=== PATIENT | male | born 1985 | race African-American/Black ===

== ENCOUNTER 2017-07-01 02:55 | Emergency (ER) | payer SELFPAY ==
--- NOTE | 2017-07-01 03:01 | PDOC ---
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 The patient has had a several month history of intermittent pruritic, generalized rash for which he was treating himself with topical and oral medications. Last week, he communicated with a friend who lives in [place]. This friend had visited him several months ago and since has been treated for scabies. Patient thought that he might have scabies and medicated himself with permethrin 3 days ago. He left the medication in contact with his skin for approximately 6 hours (slightly less than recommended). Over the next 2 days, he noted a rash in the central suprapubic region extending to the anterior proximal penis. Vesicles eventually formed in the skin and clear yellowish material drained. Patient noted some mild edema and pain in the area around the rash with development of mildly tender inguinal lymph node enlargement. There has been no scrotal or proximal thigh rash. There has been no penile discharge. There has been no other new rash noted on his body. There is no history of fever or chills. Patient has been placing bacitracin ointment daily on the groin rash. Patient has no previous history of contact dermatitis as far as he knows; he has no history of cellulitis or abscess. No history of immunocompromise or known MRSA colonization/infection. 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 He is quite concerned that the cellulitis that has formed is MRSA-related On no medications Patient denies smoking/recreational drug use/daily alcohol use No known ALLERGIES Past History - Past Medical History Allergies/Adverse Reactions: Allergies Allergy/AdvReac Type Severity Reaction Status Date / Time No Known Allergies Allergy Verified 07/01/17 02:57 Home Medications: Ambulatory Orders Amoxicillin - [Amoxicillin 875mg Tablet -] 875 mg PO BID #14 tab 07/01/17 Sulfamethoxazole/Trimethoprim [Bactrim Ds -] 2 tab PO BID #28 tablet 07/01/17 Review of Systems - Review of Systems Able to Perform ROS?: Yes Comments:: 12 point review of systems is negative except for what is noted in the history of present illness *Physical Exam - Physical Exam Comments: GENERAL: Anxious adult male, alert and oriented 3, in no acute distress HEAD: Normal with no signs of trauma. EYES: PERRLA, EOMI, sclera anicteric, conjunctiva clear. LUNGS: Breath sounds equal, clear to auscultation bilaterally. No wheezes, and no crackles. HEART:Regular rate and rhythm, normal S1 and S2 without murmur, rub or gallop. ABDOMEN:.normal bowel sounds No guarding,tenderness or rebound.No masses No distention. -8 cm x 5 cm slightly scaly, mildly raised rash with scattered closed vesicles central suprapubic region Rash extends downward to proximal third anterior surface of penis; no significant edema of genitals; No scrotal or proximal thigh involvement with rash Mildly tender 1 -1.5 cm bilateral inguinal lymphadenopathy EXTREMITIES: Normal range of motion, no edema. No clubbing or cyanosis. No erythema, or tenderness. NEUROLOGICAL: Cranial nerves II through XII grossly intact. Normal speech. No focal neurological deficits. MUSCULOSKELETAL: Back non-tender to palpation, no CVA tenderness SKIN: Warm, Dry, normal turgor, groin rash as noted above; also faint macular rash involving back and bilateral arms Progress Note - Progress Note Progress Note: This otherwise healthy 31-year-old man with no history of immunocompromise and no known history of MRSA(but known risk factor because of occupational exposure ) presents with contact irritant dermatitis of the groin secondary to permethrin. The area around the dermatitis is mildly tender and edematous with presence of enlarged bilateral inguinal lymph nodes. Of note, there is been no fever/chills/other signs of systemic toxicity. Clinical presentation most consistent with irritant contact dermatitis and secondary mild cellulitis. Since patient is at risk for MRSA secondary to his occupation as a physician in an urban hospital, antibiotic coverage will be with Bactrim DS twice a day(the patient prefers not to use Clindamycin secondary to risk for C.diff) and amoxicillin 875 mg twice a day for one week. Patient has no personal physician currently. Although he practices in the [place] , he would prefer to have his followup medical coverage in this area. He will be given referrral information for Dr. Prescott for internal medicine, Dr. Howard for dermatology and Dr. Thornton for urology. Follow-up with these physicians should be within the next week He should return to the emergency room if he develops fever/increased pain or edema of the current rash/more generalized skin breakdown or rash. *DC/Admit/Observation/Transfer Diagnosis at time of Disposition: Irritant contact dermatitis due to drug in contact with skin, Cellulitis of groin - Discharge Dispostion Disposition: HOME Condition at time of disposition: Stable - Prescriptions Prescriptions: Amoxicillin - [Amoxicillin 875mg Tablet -] 875 mg PO BID #14 tab Sulfamethoxazole/Trimethoprim [Bactrim Ds -] 2 tab PO BID #28 tablet - Referrals Referrals: Grace Prescott MD [Staff Physician] - Rubina Howard [Staff Physician] - Jabier Thornton MD [Staff Physician] - - Patient Instructions Printed Discharge Instructions: Cellulitis Additional Instructions: Bactrim DS 2 tabs twice a day for 1 week Amoxicillin 875 twice a day for one week drink plenty of water Continue bacitracin ointment to rash daily as previously Follow-up with Dr. Prescott within the next 2-3 days (general medicine) Follow-up with Dr. Howard (directional bore operator); call office tomorrow Followup with Dr Thornton(urologist)within 1 week Return to ER if you have fever/worsening pain or swelling - Post Discharge Activity
[2017-07-01 03:07] VITALS: BP 151/85; PULSE 108; TEMP 98; BMI 21.7
[2017-07-01] MEDS ORDERED: SULFAMETHOXAZOLE/TRIMETHOPRIM 800MG/160MG D.S. TABLET PO ONE (03:50)
[2017-07-01] MEDS ORDERED: AMOXICILLIN 500 MG CAPSULE (FP) PO ONE (03:51)
[2017-07-01] MEDS ORDERED: SULFAMETHOXAZOLE/TRIMETHOPRIM 800MG/160MG D.S. TABLET ONE (03:53)
[2017-07-01] MEDS ORDERED: AMOXICILLIN 250 MG CAPSULE ONE (03:53)
== END 2017-07-01 04:03 | disposition home or self-care (01) ==
LOC: FER 02:55
DX: L24.9 Irritant contact dermatitis, unspecified cause (principal); L03.314 Cellulitis of groin
CPT/HCPCS: 99281-25